=== PATIENT | female | born 1950 | race Caucasian/White ===

== ENCOUNTER 2022-12-05 11:42 | Emergency (ER) | payer MEDICARE, OTHER ==
[2022-12-05 13:36] LABS: B. PARAPERTUSSIS- RESP PCR PAN NOT DETECTED; B. PERTUSSIS- RESP PCR PANEL NOT DETECTED; C. PNEUMONIAE- RESP PCR PANEL NOT DETECTED; CORONAVIRUS 229E-RESP PCR NOT DETECTED; CORONAVIRUS HKU1-RESP PCR NOT DETECTED; CORONAVIRUS NL63-RESP PCR NOT DETECTED; CORONAVIRUS OC43-RESP PCR NOT DETECTED; HUMAN METAPNEUMOVIRUS NOT DETECTED; INFLUENZA A- RESP PCR PANEL NOT DETECTED; INFLUENZA B - RESP PCR PANEL NOT DETECTED; M. PNEUMONIAE- RESP PCR PANEL NOT DETECTED; PARAINFLUENZA VIRUS 1 NOT DETECTED; PARAINFLUENZA VIRUS 2 NOT DETECTED; PARAINFLUENZA VIRUS 3 DETECTED; PARAINFLUENZA VIRUS 4 NOT DETECTED; RHINOVIRUS/ENTEROVIRUS NOT DETECTED; RSV- RESP PCR PANEL NOT DETECTED; SARS-CoV-2 -RESP PCR PANEL NOT DETECTED
--- NOTE | 2022-12-05 13:49 | XRAY Report ---
PROCEDURE: Chest 2 View X-Ray INDICATIONS: cough TECHNIQUE: 2 views of the chest were acquired. COMPARISON: None. FINDINGS: Surgical changes and devices: Surgical changes in the upper lumbar spine. Lungs and pleura: No pleural effusions or pneumothorax. Lungs are clear. Mediastinum: Mediastinal contours appear normal. Heart size is normal. Bones and chest wall: Right upper chest wall deformity of probably remote injury or congenital defor mity. Overlying soft tissues are normal. IMPRESSION: No acute cardiopulmonary process. Reviewed by: Marian Villa MD on 12/05/2022 12:48 PM [facility] Approved by: Marian Villa MD on 12/05/2022 12:48 PM [facility] Station ID: [id number]
--- NOTE | 2022-12-05 14:26 | ED Physician Documentation ---
PD HPI URI - Stated complaint Stated Complaint: COUGH/SOA/CONGESTION - Chief complaint Chief Complaint: General - History obtained from History obtained from: Patient - History of Present Illness Timing - onset: How many days ago (5 days of cough and illness. [place] [facility] [place] scheduled flight yesterday[place] Timing duration: Days (5) Timing details: Abrupt onset, Still present Associated symptoms: Fever, Nasal congestion, Sinus pain, Dry cough, Dyspnea (with wheezing) Contributing factors: Sick contact, Travel. No: Immunocompromised, COPD / asthma Similar symptoms before: Has not had sx before Recently seen: Not recently seen Review of Systems Constitutional: reports: Fever, Chills, Myalgias Nose: reports: Congestion Throat: denies: Sore throat Cardiac: reports: Chest pain / pressure (with coughing) Respiratory: reports: Dyspnea, Cough, Wheezing Musculoskeletal: reports: Back pain (lower back hurting with ROM and with coughing movement.). denies: Extremity swelling PD PAST MEDICAL HISTORY - Past Medical History Cardiovascular: None Respiratory: None - Present Medications Home Medications: Ambulatory Orders Medication Instructions Recorded Confirmed Albuterol Sulf [Ventolin Hfa 1 - 2 puffs INH Q4HR PRN #1 each 12/05/22 Inhaler] Benzonatate [Tessalon] 100 mg PO TID PRN #20 cap 12/05/22 HYDROcod/ACETAM 5/325 [Bynum 5/325] 1 ea PO Q6H PRN #12 tablet 12/05/22 dexAMETHasone [Decadron] 4 mg PO DAILY #5 tablet 12/05/22 - Allergies Allergies/Adverse Reactions: Allergies Allergy/AdvReac Type Severity Reaction Status Date / Time Penicillins Allergy Rash Verified 12/05/22 12:27 Sulfa (Sulfonamide Allergy Hives Verified 12/05/22 12:27 Antibiotics) PD ED PE NORMAL - Vitals Vital signs reviewed: Yes - General General: Alert and oriented X 3, Well developed/nourished - HEENT HEENT: Moist mucous membranes, Pharynx benign - Neck Neck: Supple, no meningeal sign, No adenopathy - Cardiac Cardiac: RRR, No murmur - Respiratory Respiratory: No: Clear bilaterally (no coarse sounds, but having notable wheezing expiratory difuse, and cough has vibratory component in central chest. ) - Abdomen Abdomen: Soft, Non tender - Derm Derm: Normal color, Warm and dry - Extremities Extremities: Normal ROM s pain, No edema, No calf tenderness / cord Results - Vitals Vitals: Oxygen O2 Source Room air - Labs Labs: Laboratory Tests 12/05/22 12:30 Nasal Adenovirus (PCR) NOT DETECTED Nasal B. parapertussis DNA (PCR) NOT DETECTED Nasal Coronavir 229E PCR NOT DETECTED Nasal Coronavir HKU1 PCR NOT DETECTED Nasal Coronavir NL63 PCR NOT DETECTED Nasal Coronavir OC43 PCR NOT DETECTED Nasal Enterovir/Rhinovir PCR NOT DETECTED Nasal Influenza B PCR NOT DETECTED Nasal Influenza A PCR NOT DETECTED Nasal Parainfluen 1 PCR NOT DETECTED Nasal Parainfluen 2 PCR NOT DETECTED Nasal Parainfluen 3 PCR DETECTED A Nasal Parainfluen 4 PCR NOT DETECTED Nasal RSV (PCR) NOT DETECTED Nasal B.pertussis DNA PCR NOT DETECTED Nasal C.pneumoniae (PCR) NOT DETECTED Teodoro Human Metapneumo PCR NOT DETECTED Nasal M.pneumoniae (PCR) NOT DETECTED Nasal SARS-CoV-2 (PCR) NOT DETECTED - Rads (name of study) chest xray Relevant Findings:: Prelim report reviewed, EMP independent interpretation of test (clear. no infiltrates. ) PD Medical Decision Making - ED course Complexity details: reviewed results (chest xray is clear without pneumonia. ), considered differential (has URI, cough, wheezing. Tests positive for parainfluenza. She does have notable wheezing component and will treat with MID/tessalon/steroid. She is also hurting in chest and lower back with coughing and asks for pain med.), d/w patient Departure - Departure Disposition: 01 Home, Self Care Clinical Impression: Parainfluenza virus bronchitis Condition: Stable Record reviewed to determine appropriate education?: Yes Instructions: ED URI Viral W Wheezing Follow-Up: SHERIF BALTAZAR PA-C [Primary Care Provider] - Prescriptions: Albuterol Sulf [Ventolin Hfa Inhaler] 1 - 2 puffs INH Q4HR PRN #1 each PRN Reason: Shortness Of Air/Wheezing dexAMETHasone [Decadron] 4 mg PO DAILY #5 tablet HYDROcod/ACETAM 5/325 [Bynum 5/325] 1 ea PO Q6H PRN #12 tablet PRN Reason: Pain Benzonatate [Tessalon] 100 mg PO TID PRN #20 cap PRN Reason: Cough Comments: Your chest x-ray is clear without any signs of pneumonia. Your respiratory viral panel was positive for a virus called parainfluenza 3 which is a common respiratory virus that does like to cause a lot of coughing and wheezing. Like other viruses of this sort it commonly last 7 to 10 days and there may be persistent cough or even 3 to 4 weeks. Stay well-hydrated. Tylenol ibuprofen if needed. For the wheezing and cough you can use albuterol inhaler 2 to 3 puffs 4 times a day if needed and also benzonatate if needed for cough suppression. Decadron steroid can help with bronchial inflammation. For your general body aches and etc., you could also add hydrocodone every 4-6 hours if needed short-term. This also acts as a cough suppressant. I sent your prescriptions to [facility] in [place]. My narcotic instructions I am prescribing a short course of narcotic pain medication for you. These are potentially dangerous and addictive medications that should be used carefully. These medications may constipate you. Take an [id number] stool softener such as docusate twice daily with plenty of water while taking these medications. If you go 24 hours without a bowel movement, take [id number] MiraLAX, per package instructions. Do not drink or drive while taking these medications. If you received narcotic or sedating medications while in the emergency department do not drive for 24 hours. Store this medication in a safe, secure place and out of reach of children. It is a violation of federal law to give or sell this medication to another person or to use in a manner other than prescribed. The ED will not refill narcotic prescriptions, including prescriptions lost or stolen. You can dispose of unwanted medications at the [facility]'s office or at several pharmacies such as [facility]. Discharge Date/Time: 12/05/22 15:45
[2022-12-05] MEDS ORDERED: ALBUTEROL 1 PUFF INH STA (14:53)
[2022-12-05] MEDS ORDERED: CHERRY SYRUP 10 ML UDC PO ONE (14:53)
[2022-12-05] MEDS ORDERED: BENZONATATE 100 MG CAPSULE PO STA (14:53)
[2022-12-05] MEDS ORDERED: DEXAMETHASONE 10 MG/ML VIAL PO STA (14:53)
[2022-12-05 15:46] VITALS: BP 144/77
== END 2022-12-05 15:45 | disposition home or self-care (01) ==
LOC: ED 11:42
DX: B34.8 Other viral infections of unspecified site (principal); J20.8 Acute bronchitis due to other specified organisms; Z20.822 Contact with and (suspected) exposure to COVID-19
CPT/HCPCS: 71046; 87633; 94640; 94664; 99284; A9270